=== PATIENT | male | born 2000 | race Caucasian/White ===

== ENCOUNTER 2023-07-01 08:44 | Outpatient (AMB) | payer MEDICARE, MEDICAID, SELFPAY ==
--- NOTE | 2023-07-01 09:04 | MHC.PC.OV ---
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 Required: No Allergies No Known Allergies Allergy (Verified 07/01/23 09:05) Medication List - Last Reconciled 07/01/23 by Cate Delgado MD atorvastatin 10 mg PO DAILY levothyroxine 125 mcg PO DAILY Tobacco use date assessed: 07/01/23 Dental Screening Dental Screen Date: 07/01/23 Did you have a dental visit in the last 12 months?: Yes Did you have a dental problem in the last 6 months where you did not have access to dental care?: No Was dental information given to patient?: Patient has dentist HPI HPI Comments History of Present Illness Details The patient is a 22 year old male with a past medical history of autism spectrum presenting to [facility]. Transferring from pediatrics Dr Joseph CV: On atorvastatin 10mg daily. Has started on a better diet. Lost weight. And thyroid has bee treated. Endocrine: Previously seeing pediatric endocrinology. On levothyroxine 125mcg daily. Neuropsych: Previously on anxiety & ADHD medications. Previously seeing a therapist and medication provider. Born at 29 weeks. Has central processing disorder. Some learning delay, social communication disorders. MSK: Mountain biking. Working at [employer]. Seeing arthritis treatment center. Notes frequently injuring himself over the past year. Increased accidents mountain biking. Stubbing toe, walking into [place] at home. Endorses intermittent vertigo, tinnitus (b/l), 2 frontal b/l FERRARA days per week (increased over past years). Dentist [facility] Medical History (Updated 07/01/23 @ 13:57 by Elayne Justin CMA) Thyroid disease High cholesterol Family History (Updated 07/01/23 @ 13:56 by Elayne Justin CMA) Mother Asthma HTN (hypertension) Mother HTN (hypertension) Maternal Grandfather HTN (hypertension) Diabetes Lung cancer Father Cardiovascular disease Thyroid disease Alcoholism Paternal Grandmother Alcoholism Bone cancer Other FH: mental illness Substance abuse Social History (Updated 07/01/23 @ 13:57 by Elayne Justin CMA) Housing: House Patient Tobacco Use Status: Never used Tobacco e-Cigarette/Vaping Use: Never Used Second Hand Smoke Exposure: Yes service: No Current occupational status: employed 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 1. Little interest or pleasure in doing things: several days 2. Feeling down, depressed, or hopeless: not at all 3. Trouble falling or staying asleep, or sleeping too much: nearly every day 4. Feeling tired or having little energy: several days 5. Poor appetite or overeating: not at all 6. Feeling bad about yourself - or that you are a failure or have let yourself or your family down: not at all 7. Trouble concentrating on things, such as reading the newspaper or watching television: more than half the days 8. Moving or speaking so slowly that other people could have noticed. Or the opposite - being so fidgety or restless that you have been moving around a lot more than usual: several days 9. Thoughts that you would be better off or of hurting yourself in some way: not at all Total score: 8 Depression Screening Interpretation: Positive Depression Screening Done: Yes 84370 - PHQ-9 Billing: Yes Source: Developed by Drs. Kirk Love, Viri León, Cam Byrd and colleagues, with an educational jay from [employer]. Thrive Questionnaire Date Thrive assessed: 07/01/23 I am a: Patient What is your living situation today?: I have a steady place to live Within the past 12 months, did the food you bought not last and you didn't have the money to get more?: Never true Within the past 12 months, did you worry whether your food would run out before you got money to buy more?: Never true Do you have trouble paying for medicines?: No Do you have trouble getting transportation to medical appointments?: No Do you have trouble paying your heating and electricity bill?: No Do you have trouble taking care of your child, family member or friend?: No Do you have trouble with day-to-day activities such as bathing, preparing meals, shopping, managing finances, etc.?: No Are you currently unemployed and looking for a job?: No Are you interested in more education?: No Please select the resources that you would like help with: None Currently or been in a relationship where the following occur: no concerns reported THRIVE Score: 0 AUDIT C Alcohol Use Questionnaire (AUDIT-C) 1. How often do you have a drink containing alcohol?: Never 3. How often do you have six or more drinks on one occasion?: Never Total Score: 0 GENE-7 AMB Questionnaire GENE-7 Date GENE - 7 assessed: 07/01/23 Feeling nervous, anxious, or on edge: 0 = Not at all Not being able to stop or control worryin = Not at all Worrying too much about different things: 1 = Several days Trouble relaxin = More than half the days Being so restless that it is hard to sit still: 1 = Several days Feeling afraid as if something awful might happen: 0 = Not at all Source: Developed by Drs. Kirk Love, Viri León, Cam Byrd and colleagues, with an educational jay from [employer]. GENE-7 Assessment Billing GENE-7 Assessment Tool: GENE-7 Assessment 21369 Review of Systems Const Details: see HPI Physical exam (Primary Care) Vital Signs: Last Vital Signs Temp 97.7 F 07/01/23 09:09 Pulse 70 07/01/23 09:09 Resp 16 07/01/23 09:09 BP 108/80 07/01/23 09:09 Pulse Ox 99 07/01/23 09:09 Oxygen Delivery Method Room Air 07/01/23 09:09 PHYSICAL EXAM: GENERAL: Alert and oriented x 3. NAD EYES: EOMI. Anicteric. HENT: Moist mucous membranes. No scleral icterus. b/l thyroid nodule, no enlargement LUNGS: Clear to auscultation bilaterally. CARDIOVASCULAR: Regular rate and rhythm. No murmur. ABDOMEN: Soft, non-tender +bs EXTREMITIES: No edema. Non-tender. SKIN: No rashes or lesions. Warm. NEUROLOGIC: Eyes closed single balance abnormal b/l, R worse than left. normal tandem walk. PSYCHIATRIC: Cooperative. Appropriate mood and affect BMI result Body Mass Index 25.6 Tobacco/Smoking Status: Tobacco use Status Tobacco use date assessed 07/01/23 07/01/23 09:14 Patient Tobacco Use Status Never used Tobacco 07/01/23 09:14 e-Cigarette/Vaping Use Never Used 07/01/23 09:14 Depression Screening Interpretation: Positive Currently or been in a relationship where the following occur: no concerns reported Assessment and Plan Assessment & Plan (1) Hyperlipidemia: Comment: Check lipids. May try off medication depending on readings Code(s): E78.5 - Hyperlipidemia, unspecified Qualifiers: Hyperlipidemia type: mixed hyperlipidemia Qualified Code(s): E78.2 - Mixed hyperlipidemia (2) Hypothyroid: Comment: monitor tsh. consider thyroid u/s Code(s): E03.9 - Hypothyroidism, unspecified Qualifiers: Hypothyroidism type: unspecified Qualified Code(s): E03.9 - Hypothyroidism, unspecified (3) ADHD: Code(s): F90.9 - Attention-deficit hyperactivity disorder, unspecified type Qualifiers: Attention deficit-hyperactivity disorder type: predominantly inattentive Qualified Code(s): F90.0 - Attention-deficit hyperactivity disorder, predominantly inattentive type (4) Anxiety: Code(s): F41.9 - Anxiety disorder, unspecified (5) Headache: Code(s): R51.9 - Headache, unspecified Qualifiers: Headache type: other headache syndrome Qualified Code(s): G44.89 - Other headache syndrome (6) Vertigo: Comment: referral to neuro given constellation of symptoms. MRI ordered r/o lesion Code(s): R42 - Dizziness and giddiness (7) Frequent falls: Comment: see above Code(s): R29.6 - Repeated falls (8) Polyarthralgia: Comment: Labs ordered Code(s): M25.50 - Pain in unspecified joint (9) Polymyalgia: Code(s): M35.3 - Polymyalgia rheumatica (10) Right hip pain: Code(s): M25.551 - Pain in right hip Plan: xray ordered (11) Polyarthralgia: Comment: Labs ordered Code(s): M25.50 - Pain in unspecified joint (12) Polymyalgia: Code(s): M35.3 - Polymyalgia rheumatica (13) Sleep disorder: Comment: sleep study to r/o abnormal sleep behavoir/narcolepsy etc Code(s): G47.9 - Sleep disorder, unspecified (14) Headache: Code(s): R51.9 - Headache, unspecified (15) Vertigo: Comment: referral to neuro given constellation of symptoms. MRI ordered r/o lesion Code(s): R42 - Dizziness and giddiness (16) Frequent falls: Comment: see above Code(s): R29.6 - Repeated falls Orders: Orders Complete Blood Count Auto Diff Today E03.9 - Hypothyroidism, unspecified, E78.2 - Mixed hyperlipidemia, F41.9 - Anxiety disorder, unspecified, F90.9 - Attention-deficit hyperactivity disorder, unspecified type, M25.50 - Pain in unspecified joint, M35.3 - Polymyalgia rheumatica, R29.6 - Repeated falls, R42 - Dizziness and giddiness, R51.9 - Headache, unspecified Comprehensive Met. Panel Today E03.9 - Hypothyroidism, unspecified, E78.2 - Mixed hyperlipidemia, F41.9 - Anxiety disorder, unspecified, F90.9 - Attention-deficit hyperactivity disorder, unspecified type, M25.50 - Pain in unspecified joint, M35.3 - Polymyalgia rheumatica, R29.6 - Repeated falls, R42 - Dizziness and giddiness, R51.9 - Headache, unspecified Lipid Panel Today E03.9 - Hypothyroidism, unspecified, E78.2 - Mixed hyperlipidemia, F41.9 - Anxiety disorder, unspecified, F90.9 - Attention-deficit hyperactivity disorder, unspecified type, M25.50 - Pain in unspecified joint, M35.3 - Polymyalgia rheumatica, R29.6 - Repeated falls, R42 - Dizziness and giddiness, R51.9 - Headache, unspecified TSH reflex Free T4 Today E03.9 - Hypothyroidism, unspecified, E78.2 - Mixed hyperlipidemia, F41.9 - Anxiety disorder, unspecified, F90.9 - Attention-deficit hyperactivity disorder, unspecified type, M25.50 - Pain in unspecified joint, M35.3 - Polymyalgia rheumatica, R29.6 - Repeated falls, R42 - Dizziness and giddiness, R51.9 - Headache, unspecified Vitamin B12 Today E03.9 - Hypothyroidism, unspecified, E78.2 - Mixed hyperlipidemia, F41.9 - Anxiety disorder, unspecified, F90.9 - Attention-deficit hyperactivity disorder, unspecified type, M25.50 - Pain in unspecified joint, M35.3 - Polymyalgia rheumatica, R29.6 - Repeated falls, R42 - Dizziness and giddiness, R51.9 - Headache, unspecified Rheumatoid Factor Today M25.50 - Pain in unspecified joint, M35.3 - Polymyalgia rheumatica RT PSG in-lab sleep study Today G47.9 - Sleep disorder, unspecified MR head/brain wo/w con Today R29.6 - Repeated falls, R42 - Dizziness and giddiness, R51.9 - Headache, unspecified Lyme IgG/IgM w/reflex to WB Today E03.9 - Hypothyroidism, unspecified, E78.2 - Mixed hyperlipidemia, F41.9 - Anxiety disorder, unspecified, F90.9 - Attention-deficit hyperactivity disorder, unspecified type, M25.50 - Pain in unspecified joint, M35.3 - Polymyalgia rheumatica, R29.6 - Repeated falls, R42 - Dizziness and giddiness, R51.9 - Headache, unspecified XR hip RT min 2V Today M25.50 - Pain in unspecified joint, M25.551 - Pain in right hip, M35.3 - Polymyalgia rheumatica JAYMIE Reflex Titer and Pattern Today M25.50 - Pain in unspecified joint, M35.3 - Polymyalgia rheumatica Referrals Neurology Referral R29.6 - Repeated falls, R42 - Dizziness and giddiness, R51.9 - Headache, unspecified Medications: New atorvastatin 10 mg PO DAILY 90 days 90 tabs 3RF levothyroxine 125 mcg PO DAILY 90 days 90 tabs 3RF Coding Level of Care Code Tele New Pt Level 5 (25330) Complex EM visit Add On G2211 Diagnoses Mixed hyperlipidemia E78.2 Hyperlipidemia type: mixed hyperlipidemia Hypothyroidism, unspecified type E03.9 Hypothyroidism type: unspecified Attention deficit hyperactivity disorder (ADHD), predominantly inattentive type F90.0 Attention deficit-hyperactivity disorder type: predominantly inattentive Anxiety F41.9 Other headache syndrome G44.89 Headache type: other headache syndrome Vertigo R42 Frequent falls R29.6 Polyarthralgia M25.50 Polymyalgia M35.3 Right hip pain M25.551 Sleep disorder G47.9 Additional Codes GENE-7 Assessment Billing - GENE-7 Assessment Tool: GENE-7 Assessment 12799 ([id number]) Time Spent (min) 75
[2023-07-01 09:09] VITALS: BP 108/80; PULSE 70; RESP 16; TEMP 36.5; O2SAT 99; BMI 25.6
== END 2023-07-01 10:15 | disposition home or self-care (01) ==
PROVIDERS: PCP Internal Medicine; Visit Provider Family Medicine
DX: E78.2 Mixed hyperlipidemia (principal); M35.3 Polymyalgia rheumatica; F90.0 Attention-deficit hyperactivity disorder, predominantly inattentive type; F41.9 Anxiety disorder, unspecified; E03.9 Hypothyroidism, unspecified; G44.89 Other headache syndrome; R42 Dizziness and giddiness; R29.6 Repeated falls; M25.50 Pain in unspecified joint; M25.551 Pain in right hip; G47.9 Sleep disorder, unspecified; R51.9 Headache, unspecified
CPT/HCPCS: 99205; G2212

== ENCOUNTER → 2023-07-14 19:30 | Outpatient (REF) | payer MEDICARE, MEDICAID, SELFPAY | LOC: HO.SL 19:30 | PROVIDERS: PCP Internal Medicine; Visit Provider Internal Medicine | DX: G47.9 Sleep disorder, unspecified (principal) | CPT/HCPCS: 95810 ==

== ENCOUNTER → 2023-07-14 20:54 | Outpatient (BNV) | payer MEDICARE, MEDICAID, SELFPAY | PROVIDERS: PCP Internal Medicine; Visit Provider Psychiatry & Neurology Neurology | DX: G47.9 Sleep disorder, unspecified (principal) | CPT/HCPCS: 95810 ==

== ENCOUNTER 2023-10-14 15:27 | Outpatient (REF) | payer MEDICARE, MEDICAID, SELFPAY ==
--- NOTE | ~2023-10-14 | MR_ITS ---
EXAMINATION: MR BRAIN WITH AND WITHOUT CONTRAST CLINICAL INFORMATION: Repeated falls, vertigo, headache COMPARISON: None. TECHNIQUE: MRI of the brain was obtained using routine sequences before and following administration of intravenous contrast. A total of 8 mL of Gadavist was administered intravenously. FINDINGS: No acute infarct. The GRE sequence is without susceptibility artifact to suggest acute or chronic blood products. No extra-axial fluid collection. The ventricles and sulci are normal in size and configuration without significant volume loss or hydrocephalus. There are a few scattered small T2 FLAIR hyperintense foci (less than 5) in the subcortical/deep white matter which are entirely nonspecific. No abnormal intraparenchymal or leptomeningeal enhancement. No significant mass effect or herniation pattern. The intracranial dural venous sinus and arterial flow voids are preserved. Normal appearance of the midline structures. The orbits are grossly unremarkable. Retention cysts along the floor of the right sphenoid and maxillary sinuses. Mild patchy ethmoid air cell mucosal disease. Leftward nasal septal deviation with bony spur impinging upon the left inferior nasal turbinate. No mastoid effusion. Normal marrow signal. MR/MR head/brain wo/w con IMPRESSION: Few scattered small lesions (less than 5) in the subcortical/deep white matter which are entirely nonspecific. No acute intracranial abnormality nor pathologic intracranial enhancement. Leftward nasal septal deviation with bony spur impinging upon the left inferior nasal turbinate. Electronically signed by: Jen Wilburn MD 11/02/2023 06:42 PM EDT
[2023-10-14] MEDS: gadobutroL 10 ML VIAL IVPUSH (16:18)
== END 2023-10-14 15:28 | disposition home or self-care (01) ==
LOC: HO.MRI 15:27
PROVIDERS: PCP Internal Medicine; Visit Provider Internal Medicine
DX: R29.6 Repeated falls (principal); R42 Dizziness and giddiness; R51.9 Headache, unspecified
CPT/HCPCS: 70553; A9585

== ENCOUNTER 2023-11-11 09:12 | Outpatient (AMB) | payer MEDICARE, MEDICAID, SELFPAY ==
--- NOTE | 2023-11-11 09:18 | A.OFFPC_ITS ---
Vital Signs 11/11/23 09:25 Height 5 ft 11 in Weight 187 lb BMI 26.1 BP 131/77 Blood Pressure Location Lt brachial Position Sitting Respiration 13 Pulse 77 Pulse Source Pulse Oximeter Temp 98.1 F Temp Source Temporal Artery Scan Pulse Oximetry (%) 98 Oxygen Delivery Method Room Air Intake Visit Reasons: PE Intake Note: Patient is here with his mother and reports he would like to go over his sleep study and mri. Patient reports he has not been taking his medication as of recent due to wanting to get labs drawn to see if he still needs his medications. Quality Measurement Specialist Required: No Accompanied by: Mother Allergies No Known Allergies Allergy (Verified 11/11/23 09:29) Tobacco use date assessed: 07/01/23 Dental Screening Dental Screen Date: 07/01/23 HPI HPI Comments History of Present Illness Details The patient is a 23 year old male with a past medical history of autism spectrum presenting for annual exam CV: On break from atorvastatin 10mg daily so can see what lipids are off the medication. Has started on a better diet. Lost weight. Has been off levothyroxine for the past 1-2 weeks. Endocrine: Previously seeing pediatric endocrinology. On levothyroxine 125mcg daily. Neuropsych: Previously on anxiety & ADHD medications. Previously seeing a therapist and medication provider. Born at 29 weeks. Has central processing disorder. Some learning delay, social communication disorders. MSK: Mountain biking. Working at [employer]. Seeing arthritis treatment center. Experiencing a lot of joint pain but biking 60 hours a week and doing cardio Notes frequently injuring himself over the past year. Increased accidents mountain biking. Stubbing toe, walking into [place] at home. Endorses intermittent vertigo, tinnitus (b/l), 2 frontal b/l FERRAAR days per week (increased over past years). MRI of the brain was reassuring. No sleep apnea on study. Frequent limb movements with poor sleep efficiency. 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 HEENT: Denies changes in vision and hearing. RESPIRATORY: Denies SOB and cough. CV: Denies palpitations and CP GI: Denies abdominal pain, nausea, vomiting and diarrhea. : Denies dysuria and urinary frequency. MSK: Denies new myalgia and joint pain. SKIN: Denies rash and pruritus. NEUROLOGICAL: Denies headache PSYCHIATRIC: Denies recent changes in mood. PHYSICAL EXAM: GENERAL: Alert and oriented x 3. NAD EYES: EOMI. Anicteric. HENT: Moist mucous membranes. No scleral icterus. No cervical lymphadenopathy. LUNGS: Clear to auscultation bilaterally. CARDIOVASCULAR: Regular rate and rhythm. No murmur. No JVD. ABDOMEN: Soft, non-tender +bs : Normal penis, no testicular masses EXTREMITIES: No edema. Non-tender. SKIN: No rashes or lesions. Warm. NEUROLOGIC: No focal neurological deficits. CN II-XII grossly intact PSYCHIATRIC: Cooperative. Appropriate mood and affect [facility] Medical History (Updated 11/11/23 @ 10:05 by Cate Delgado MD) Thyroid disease High cholesterol Family History (Updated 07/01/23 @ 13:56 by Elayne Justin CMA) Mother Asthma HTN (hypertension) Mother HTN (hypertension) Maternal Grandfather HTN (hypertension) Diabetes Lung cancer Father Cardiovascular disease Thyroid disease Alcoholism Paternal Grandmother Alcoholism Bone cancer Other FH: mental illness Substance abuse Social History (Updated 07/01/23 @ 13:57 by Elayne Justin CMA) Housing: House Patient Tobacco Use Status: Never used Tobacco e-Cigarette/Vaping Use: Never Used Second Hand Smoke Exposure: Yes service: No Current occupational status: employed 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 1. Little interest or pleasure in doing things: not at all 2. Feeling down, depressed, or hopeless: not at all 3. Trouble falling or staying asleep, or sleeping too much: several days 4. Feeling tired or having little energy: several days 5. Poor appetite or overeating: not at all 6. Feeling bad about yourself - or that you are a failure or have let yourself or your family down: not at all 7. Trouble concentrating on things, such as reading the newspaper or watching television: not at all 8. Moving or speaking so slowly that other people could have noticed. Or the opposite - being so fidgety or restless that you have been moving around a lot more than usual: not at all 9. Thoughts that you would be better off or of hurting yourself in some way: not at all Total score: 2 Depression Screening Interpretation: Negative Depression Screening Done: Yes 65971 - PHQ-9 Billing: Yes Source: Developed by Drs. Kirk oLve, Viri León, Cam Byrd and colleagues, with an educational jay from [employer]. Thrive Questionnaire Date Thrive assessed: 11/11/23 I am a: Patient What is your living situation today?: I have a steady place to live Within the past 12 months, did the food you bought not last and you didn't have the money to get more?: Never true Within the past 12 months, did you worry whether your food would run out before you got money to buy more?: Sometimes True Do you have trouble paying for medicines?: No Do you have trouble getting transportation to medical appointments?: No Do you have trouble paying your heating and electricity bill?: No Do you have trouble taking care of your child, family member or friend?: No Do you have trouble with day-to-day activities such as bathing, preparing meals, shopping, managing finances, etc.?: No Are you currently unemployed and looking for a job?: No Are you interested in more education?: No Please select the resources that you would like help with: Food Currently or been in a relationship where the following occur: No concerns reported THRIVE Score: 1 AUDIT C Alcohol Use Questionnaire (AUDIT-C) 1. How often do you have a drink containing alcohol?: Never 3. How often do you have six or more drinks on one occasion?: Never Total Score: 0 GENE-7 AMB Questionnaire GENE-7 Date GENE - 7 assessed: 11/11/23 Feeling nervous, anxious, or on edge: 1 = Several days Not being able to stop or control worryin = Several days Worrying too much about different things: 1 = Several days Trouble relaxin = Several days Being so restless that it is hard to sit still: 0 = Not at all Becoming easily annoyed or irritable: 1 = Several days Feeling afraid as if something awful might happen: 1 = Several days Total GENE-7 score (0-4 normal; 5-9 mild; 10-14 moderate; 15-21 severe): 6 Source: Developed by Viri MerrittW. Mau, Cam Byrd and colleagues, with an educational jay from [employer]. GENE-7 Assessment Billing GENE-7 Assessment Tool: GENE-7 Assessment 01751 Physical exam (Primary Care) Vital Signs: Last Vital Signs Temp 98.1 F 11/11/23 09:25 Pulse 77 11/11/23 09:25 Resp 13 11/11/23 09:25 BP 131/77 11/11/23 09:25 Pulse Ox 98 11/11/23 09:25 Oxygen Delivery Method Room Air 11/11/23 09:25 BMI result Body Mass Index 26.1 Tobacco/Smoking Status: Tobacco use Status Tobacco use date assessed 07/01/23 11/11/23 09:19 Patient Tobacco Use Status Never used Tobacco 11/11/23 09:19 e-Cigarette/Vaping Use Never Used 11/11/23 09:19 PHQ-9: PHQ-9 Score PHQ-9: Total score 2 11/11/23 09:41 Depression Screening Interpretation: Negative Thrive Assessment: Date of Thrive Assessment Date Thrive assessed 11/11/23 11/11/23 09:34 Currently or been in a relationship where the following occur: No concerns reported Assessment and Plan Assessment & Plan (1) Physical exam: Code(s): Z00.00 - Encounter for general adult medical examination without abnormal findings Plan: Preventive measures discussed Tdap today (2) Polyarthralgia: Comment: Labs ordered Code(s): M25.50 - Pain in unspecified joint (3) Hypothyroid: Comment: monitor tsh. Code(s): E03.9 - Hypothyroidism, unspecified Qualifiers: Hypothyroidism type: unspecified Qualified Code(s): E03.9 - Hyp othyroidism, unspecified Orders: Orders Magnesium Today M25.50 - Pain in unspecified joint, M35.3 - Polymyalgia rheumatica IRON PROFILE Today M25.50 - Pain in unspecified joint, M35.3 - Polymyalgia rheumatica Coding Level of Care Code Est Pt Prev Care [id number]) Diagnoses Physical exam Z00.00 Polyarthralgia M25.50 Hypothyroidism, unspecified type E03.9 Hypothyroidism type: unspecified Additional Codes GENE-7 Assessment Billing - GENE-7 Assessment Tool: GENE-7 Assessment 21050 ([id number])
[2023-11-11 09:25] VITALS: BP 131/77; PULSE 77; RESP 13; TEMP 36.7; O2SAT 98; BMI 26.1
== END 2023-11-11 10:23 | disposition home or self-care (01) ==
PROVIDERS: PCP Internal Medicine; Visit Provider Internal Medicine
DX: Z00.00 Encounter for general adult medical examination without abnormal findings (principal); M25.50 Pain in unspecified joint; E03.9 Hypothyroidism, unspecified

== ENCOUNTER → 2023-11-11 09:12 | Outpatient (BNVA) | payer MEDICARE, MEDICAID, SELFPAY | PROVIDERS: PCP Internal Medicine; Visit Provider Internal Medicine ==

== ENCOUNTER 2023-11-11 10:10 | Outpatient (REF) | payer MEDICARE, MEDICAID, SELFPAY ==
[2023-11-11 11:36] LABS: MANUAL DIFF FLAG NO
[2023-11-11 11:57] LABS: Basophils Percent Auto 0.5 % (0-2); Eosinophils Absolute Auto 0.2 X10*3/uL (0.0-0.4); Eosinophils Percent Auto 4.3 % (0-4); Hematocrit 50.6 % (42.0-52.0); Hemoglobin 16.9 g/dl (14.0-18.0); Imm Gran Abs Auto 0.01 X10*3/uL (0.00-0.03); Imm Gran Pct Auto 0.2 % (0.0-0.4); Lymphocytes Absolute Auto 2.3 X10*3/uL (1.2-4.9); Lymphocytes Percent Auto 41.2 % (20-40); Mean Corpuscular HGB Conc 33.4 g/dl (31.0-36.0); Mean Corpuscular Hemoglobin 27.6 pg (27.0-33.0); Mean Corpuscular Volume 82.7 fL (80.0-98.0); Mean Platelet Volume 10.6 fL (9.4-12.4); Monocytes Absolute Auto 0.4 X10*3/uL (0.1-1.2); Monocytes Percent Auto 7.9 % (2-11); Neutrophils Absolute Auto 2.5 x10*3/uL (2.0-8.3); Neutrophils Percent Auto 45.9 % (45-73); Platelet Count 164 X10*3/uL (160-400); Red Blood Count 6.12 X10*6/uL (4.60-5.80); Red Cell Distribution Width 12.6 % (11.0-16.0); White Blood Count 5.5 X10*3/uL (4.8-10.8)
[2023-11-11 12:28] LABS: Rheumatoid Factor < 13.0 IU/mL (<15.0)
[2023-11-11 12:53] LABS: Vitamin B12 818 pg/mL (200-900)
[2023-11-11 12:57] LABS: Alanine Aminotransferase 44 U/L (0-40); Albumin Level 4.5 g/dL (3.5-5.0); Alkaline Phosphatase 78 U/L (39-117); Anion Gap 12 (12-20); Aspartate Amino Transferase 34 U/L (5-37); Bilirubin Total 0.5 mg/dL (0.0-1.0); Blood Urea Nitrogen 27 mg/dL (9-16); Calcium 10.2 mg/dL (8.4-10.2); Carbon Dioxide 31 mmol/L (22-29); Chloride 102 mmol/L (96-108); Cholesterol 256 mg/dL (<200); Estimated Glomerular Filt Rate > 60; HDL Cholesterol 51 mg/dL (>40); Iron 129 mcg/dL (45-160); LDL Cholesterol Calculated 178 mg/dL (<100); Magnesium 1.9 mg/dL (1.6-2.6); Percent Iron Saturation 42 % (15-50); Potassium 4.4 mmol/L (3.3-5.1); Sodium 141 mmol/L (135-145); TSH reflex Free T4 5.68 uIU/mL (0.32-4.0); Total Iron Binding Capacity 304 mcg/dL (228-428); Total Protein 7.4 g/dL (6.5-8.0); Triglycerides 138 mg/dL (<150); Unsaturated Iron Binding 175 ug/dL
[2023-11-11 13:51] LABS: Glucose Random 59 mg/dL (60-115)
[2023-11-11 14:48] LABS: Free T4 (Free Thyroxine) 0.83 ng/dL (0.71-1.85)
[2023-11-12 18:08] LABS: Lyme Abs Screen <0.90 index
[2023-11-13 12:23] LABS: Anti Nuclear Antibody Screen NEGATIVE (NEGATIVE)
== END 2023-11-11 10:11 | disposition home or self-care (01) ==
LOC: HO.WFDLDS 10:10
PROVIDERS: Visit Provider Internal Medicine
DX: Z00.00 Encounter for general adult medical examination without abnormal findings (principal); F90.9 Attention-deficit hyperactivity disorder, unspecified type; E03.9 Hypothyroidism, unspecified; E78.2 Mixed hyperlipidemia; F41.9 Anxiety disorder, unspecified; R51.9 Headache, unspecified; R42 Dizziness and giddiness; R29.6 Repeated falls; M25.50 Pain in unspecified joint; M35.3 Polymyalgia rheumatica; F84.0 Autistic disorder
CPT/HCPCS: 36415; 80053; 80061; 82607; 83540; 83735; 84439; 84443; 85025; 86038; 86431; 86617; 86618; 96127; 99395

== ENCOUNTER 2023-11-25 14:50 | Outpatient (AMB) | payer MEDICARE, MEDICAID, SELFPAY ==
--- NOTE | 2023-11-25 15:03 | A.OFFPC_ITS ---
Vital Signs 11/25/23 15:04 Height 5 ft 11 in Weight 184 lb 2 oz BMI 25.7 BP 120/64 Blood Pressure Location Rt brachial Position Sitting Pulse 68 Pulse Source Pulse Oximeter Oxygen Delivery Method Room Air Intake Visit Reasons: fu blood work Intake Note: Follow up lab results. Processing Mgr Required: No Allergies No Known Allergies Allergy (Verified 11/25/23 15:03) Tobacco use date assessed: 07/01/23 Dental Screening Dental Screen Date: 07/01/23 HPI HPI Comments History of Present Illness Details The patient is a 23 year old male with a past medical history of autism spectrum presenting for follow up CV: On break from atorvastatin 10mg daily so can see what lipids are off the medication. Has started on a better diet. Lost weight. Has been off for ~2 weeks his LDL is 178. Endocrine: Previously seeing pediatric endocrinology. On levothyroxine 125mcg daily but stopped 2 weeks ago wants to see if still necessary. TSH 5.68 with free T4 0.83 Neuropsych: Previously on anxiety & ADHD medications. Previously seeing a therapist and medication provider. Born at 29 weeks. Has central processing disorder. Some learning delay, social communication disorders. MSK: Mountain biking. Working at [employer]. Seeing arthritis treatment center. Experiencing a lot of joint pain but biking 60 hours a week and doing cardio Notes frequently injuring himself over the past year. Increased accidents mountain biking. Stubbing toe, walking into [place] at home. Endorses intermittent vertigo, tinnitus (b/l), 2 frontal b/l FERRARA days per week (increased over past years). MRI of the brain was reassuring. No sleep apnea on study. Frequent limb movements with poor sleep efficiency. Reports chronic severe pain in the groin. Originates in the mid pubic area and seems to shoot through the shaft. This has been ongoing. It lasts for a few seconds or a few minutes. No visible hernias on exam. No penile discharge, denies dysuria Dentist UTD ROS see HPI PHYSICAL EXAM: GENERAL: Alert and oriented x 3. NAD EYES: EOMI. Anicteric. HENT: Moist mucous membranes. No scleral icterus. No cervical lymphadenopathy. SKIN: No rashes or lesions. PSYCHIATRIC: Cooperative. Appropriate mood and affect [facility] Medical History (Updated 11/26/23 @ 10:33 by Cate Delgado MD) Thyroid disease High cholesterol Family History (Updated 07/01/23 @ 13:56 by Elayne Justin CMA) Mother Asthma HTN (hypertension) Mother HTN (hypertension) Maternal Grandfather HTN (hypertension) Diabetes Lung cancer Father Cardiovascular disease Thyroid disease Alcoholism Paternal Grandmother Alcoholism Bone cancer Other FH: mental illness Substance abuse Social History (Updated 07/01/23 @ 13:57 by Elayne Justin CMA) Housing: House Patient Tobacco Use Status: Never used Tobacco e-Cigarette/Vaping Use: Never Used Second Hand Smoke Exposure: Yes service: No Current occupational status: employed 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 3. Trouble falling or staying asleep, or sleeping too much: several days Source: Developed by Drs. Kirk Love, Cam Elizabeth and colleagues, with an educational jay from [employer]. Thrive Questionnaire Date Thrive assessed: 11/09/23 I am a: Patient What is your living situation today?: I have a steady place to live Within the past 12 months, did the food you bought not last and you didn't have the money to get more?: Never true Within the past 12 months, did you worry whether your food would run out before you got money to buy more?: Sometimes True Do you have trouble paying for medicines?: No Do you have trouble getting transportation to medical appointments?: No Do you have trouble paying your heating and electricity bill?: No Do you have trouble taking care of your child, family member or friend?: No Do you have trouble with day-to-day activities such as bathing, preparing meals, shopping, managing finances, etc.?: No Are you currently unemployed and looking for a job?: No Are you interested in more education?: No Please select the resources that you would like help with: Food Currently or been in a relationship where the following occur: No concerns reported THRIVE Score: 1 GENE-7 AMB Questionnaire GENE-7 Date GENE - 7 assessed: 11/11/23 Source: Developed by Drs. Kirk Love, Cam Elizabeth and colleagues, with an educational jay from [employer]. Physical exam (Primary Care) Vital Signs: Last Vital Signs Pulse 68 11/25/23 15:04 BP 120/64 11/25/23 15:04 Oxygen Delivery Method Room Air 11/25/23 15:04 BMI result Body Mass Index 25.7 Tobacco/Smoking Status: Tobacco use Status Tobacco use date assessed 07/01/23 11/25/23 15:07 Patient Tobacco Use Status Never used Tobacco 11/25/23 15:07 e-Cigarette/Vaping Use Never Used 11/25/23 15:07 Thrive Assessment: Date of Thrive Assessment Date Thrive assessed 11/09/23 11/25/23 15:07 Currently or been in a relationship where the following occur: No concerns reported Coding Level of Care Code Est Pt Level 4 (60059) Complex EM visit Add On G2211 Diagnoses Penile pain N48.89 Hypothyroidism, unspecified type E03.9 Hypothyroidism type: unspecified Mixed hyperlipidemia E78.2 Hyperlipidemia type: mixed hyperlipidemia Assessment & Plan Assessment & Plan (1) Penile pain: Code(s): N48.89 - Other specified disorders of penis Category: Medical Plan: u/s and referral to urology This is not acute (2) Hypothyroid: Code(s): E03.9 - Hypothyroidism, unspecified Category: Medical Qualifiers: Hypothyroidism type: unspecified Qualified Code(s): E03.9 - Hypothyroidism, unspecified Plan: Check TSH in six weeks with visit. currently holding medications (3) Hyperlipidemia: Code(s): E78.5 - Hyperlipidemia, unspecified Category: Medical Qualifiers: Hyperlipidemia type: mixed hyperlipidemia Qualified Code(s): E78.2 - Mixed hyperlipidemia Plan: check lipids in six weeks. currently holding meds Orders: Orders Lipid Panel 5 Weeks E03.9 - Hypothyroidism, unspecified, E78.2 - Mixed hyperlipidemia TSH reflex Free T4 5 Weeks E03.9 - Hypothyroidism, unspecified, E78.2 - Mixed hyperlipidemia Thyroid Peroxidase Antibodies 5 Weeks E03.9 - Hypothyroidism, unspecified, E78.2 - Mixed hyperlipidemia UA CC w/rflx Micro + Cult 11/25/23 R10.2 - Pelvic and perineal pain US scrotum doppler 11/25/23 N48.89 - Other specified disorders of penis Referrals Urology Referral N48.89 - Other specified disorders of penis, R10.2 - Pelvic and perineal pain
[2023-11-25 15:04] VITALS: BP 120/64; PULSE 68; BMI 25.7
== END 2023-11-25 15:46 | disposition home or self-care (01) ==
PROVIDERS: PCP Internal Medicine; Visit Provider Internal Medicine
DX: N48.89 Other specified disorders of penis (principal); E03.9 Hypothyroidism, unspecified; E78.2 Mixed hyperlipidemia

== ENCOUNTER → 2023-11-25 14:50 | Outpatient (BNVA) | payer MEDICARE, MEDICAID, SELFPAY | PROVIDERS: PCP Internal Medicine; Visit Provider Internal Medicine | DX: N48.89 Other specified disorders of penis (principal); E03.9 Hypothyroidism, unspecified; E78.2 Mixed hyperlipidemia; R10.2 Pelvic and perineal pain; F84.0 Autistic disorder | CPT/HCPCS: 99212 ==

== ENCOUNTER 2023-12-29 15:16 | Outpatient (REF) | payer MEDICARE, MEDICAID, SELFPAY ==
[2023-12-29 17:01] LABS: Cholesterol 264 mg/dL (<200); HDL Cholesterol 54 mg/dL (>40); LDL Cholesterol Calculated 189 mg/dL (<100); Triglycerides 105 mg/dL (<150)
[2023-12-29 17:19] LABS: TSH reflex Free T4 2.83 uIU/mL (0.32-4.0)
[2023-12-31 20:08] LABS: Thyroid Peroxidase Antibodies 122 IU/mL (<9)
== END 2023-12-29 15:17 | disposition home or self-care (01) ==
LOC: HO.HMGCLDS 15:16
PROVIDERS: PCP Internal Medicine; Visit Provider Internal Medicine
DX: E03.9 Hypothyroidism, unspecified (principal); E78.2 Mixed hyperlipidemia
CPT/HCPCS: 36415; 80061; 84443; 86376

== ENCOUNTER 2024-01-20 10:07 | Outpatient (REF) | payer MEDICARE, MEDICAID, SELFPAY ==
--- NOTE | ~2024-01-20 | US_ITS ---
EXAMINATION: US SCROTUM CLINICAL INFORMATION: Pain in the pelvis.. COMPARISON: None available. TECHNIQUE: A sonogram of the scrotum was performed assessing alegria-scale appearance and color Doppler flow. Spectral Doppler analysis of the arterial and venous flow were performed in the testes bilaterally. FINDINGS: RIGHT: Right testicle measures 5.1 x 2.2 x 2.7 cm, volume 15.9 mL. No focal testicular parenchymal lesions are visualized. Spectral Doppler analysis of the arterial and venous flow is normal in the right testis. Right epididymal head is normal in size. Small right-sided hydrocele. Incidental appendix involving the epididymal head. Right epididymal Doppler flow is normal. 3 mm scrotal anita on the right. LEFT: Left testicle measures 4.8 x 2.2 x 2.5 cm, volume 13.8 mL. No focal testicular parenchymal lesions are visualized. Spectral Doppler analysis of the arterial and venous flow is normal in the left testis. Left epididymal head is normal in size. No left hydrocele or varicocele is seen. Left epididymal Doppler flow is normal. US/US scrotum IMPRESSION: 1. Normal ultrasound of the testicles. 2. Small right-sided hydrocele. Electronically signed by: Jesse Greenfield MD 01/21/2024 05:28 PM EST
== END 2024-01-20 10:08 | disposition home or self-care (01) ==
LOC: HO.US 10:07
PROVIDERS: PCP Internal Medicine; Visit Provider Internal Medicine
DX: N48.89 Other specified disorders of penis (principal); R10.2 Pelvic and perineal pain
CPT/HCPCS: 76870

== ENCOUNTER 2024-01-26 14:07 | Outpatient (AMB) | payer MEDICARE, MEDICAID, SELFPAY ==
--- NOTE | 2024-01-26 14:10 | A.OFFVIS_ITS ---
Intake Visit Reasons: chronic groin pain/pelvic pain Intake Note: Patient is present for CHRONIC GROIN PAIN/PELVIC PAIN Urology Medication:NONE Antibiotic Allergy:NONE Blood Thinner:NONE Apartment Rental Clerk Required: No Allergies No Known Allergies Allergy (Verified 01/26/24 22:41) Medication List - Last Reconciled 01/26/24 by SANTHOSH Blount atorvastatin 10 mg PO DAILY 90 days levothyroxine 125 mcg PO DAILY 90 days HPI Comments Details: Keith is a pleasant 23-year-old male patient of Dr. Brant Arriaga who was accompanied by his mom at today's office visit. He has a past medical history of thyroid disease, hyperlipidemia, and autism. He presents to the office today as a new patient for ongoing scrotal and perineal pain he has been experiencing. He also reports dysuria at times. He reports the symptoms have been present for many years however feels symptoms fluctuate. He reports having followed up with his new PCP as he has recently transferred from pediatrics to adult medicine at which time recommendations were made for urology referral for further assessment evaluation. In review of patient's chart it appears scrotal ultrasound was ordered and performed. These results were reviewed with the patient and his mom today. Normal ultrasound of the testicles. Small right-sided hydrocele. In assessment of the patient today the penis is circumcised no pain elicited during exam of area. ROSA performed boggy prostate noted we discussed potential symptoms related to prostatitis. We discussed further treatment options as well as risks and benefits of these treatment options. We discussed bladder triggers/irritants. In office urinalysis results reviewed with the patient and his mom today. He reports feeling lower urinary tract symptoms have been present for many years and would like to continue with surveillance monitoring at this time. We discussed referral to pelvic floor therapy. He denies incontinence, nocturia, hematuria, fever, and or chills. He otherwise offers no other issues or concerns at this time. 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 Current occupational exposures/hazards: No Cognitive needs: Yes Hearing needs: No Vision needs: No Review of Systems Const All systems reviewed & are unremarkable except as noted in HPI and below Physical Exam Const General: cooperative, healthy appearing, comfortable, no acute distress, well developed, alert and awake Orientation/consciousness: patient oriented x3 Limitations: other limitations HEENT Head: Yes normal to inspection, Yes normocephalic and Yes atraumatic Ears: hearing grossly normal bilaterally Eyes General: appearance normal, both eyes and all related structures Neck Neck: Yes normal visual inspection and Yes trachea midline Chest Chest palpation & inspection: normal inspection of the chest Resp Effort & Inspection: normal respiratory effort and able to speak in complete sentences Cardio Rate: regular rate GI Inspection: Yes normal to inspection General: Yes no CVA tenderness Back/Spine/Pelvis Back: no CVA tenderness Skin General skin exam: no rashes or lesions noted Neuro General: patient oriented x3 Extrem General: Yes normal to inspection Psych Appearance: grossly normal and well kempt Mental Status: mental status grossly normal Speech and movement: Normal speech and movement present and Clear speech present Affect: normal affect Attitude: cooperative Thought process: Normal thought process present Thought content: Normal thought content present Insight: Fair insight present (Psych) Judgement: Fair judgement present (Psych) Results AMB Urinalysis, Automated UA Leukoctes 0 Luiz/uL Last Edit by ADRIANE Stein on 01/26/24 14:22 UA Nitrite Negative Last Edit by ADRIANE Stein on 01/26/24 14:22 UA Urobilinogen 0.2 mg/dL Last Edit by ADRIANE Stein on 01/26/24 14:2 2 UA Protein 15 mg/dL Last Edit by ADRIANE Stein on 01/26/24 14:22 UA pH 6.0 Last Edit by ADRIANE Stein on 01/26/24 14:22 UA Blood 0 Chas/uL Last Edit by ADRIANE Stein on 01/26/24 14:22 UA Specific [place] 1.025 Last Edit by ADRIANE Stein on 01/26/24 14: 22 UA Ketone Negative Last Edit by ADRIANE Stein on 01/26/24 14:22 UA Bilirubin 0 mg/dL Last Edit by ADRIANE Stein on 01/26/24 14:22 UA Glucose 0 mg/dL Last Edit by ADRIANE Stein on 01/26/24 14:22 Results Reviewed Results Reviewed: Laboratory Last Values Urine pH (Auto) 6.0 01/26/24 14:21 Specific [place] (Auto) 1.025 01/26/24 14:21 Urine Protein (Auto) 15 mg/dL 01/26/24 14:21 Glucose (UA)(Auto) 0 mg/dL 01/26/24 14:21 Urine Ketones (Auto) Negative 01/26/24 14:21 Urine Blood (Auto) 0 Chas/uL 01/26/24 14:21 Urine Nitrite (Auto) Negative 01/26/24 14:21 Urine Bilirubin (Auto) 0 mg/dL 01/26/24 14:21 Urine Urobilinogen (Auto) 0.2 mg/dL 01/26/24 14:21 Leukocyte Esterase (Auto) 0 Luiz/uL 01/26/24 14:21 Date of Service: 01/20/24 EXAMINATION: US SCROTUM FINDINGS: RIGHT: Right testicle measures 5.1 x 2.2 x 2.7 cm, volume 15.9 mL. No focal testicular parenchymal lesions are visualized. Spectral Doppler analysis of the arterial and venous flow is normal in the right testis. Right epididymal head is normal in size. Small right-sided hydrocele. Incidental appendix involving the epididymal head. Right epididymal Doppler flow is normal. 3 mm scrotal anita on the right. LEFT: Left testicle measures 4.8 x 2.2 x 2.5 cm, volume 13.8 mL. No focal testicular parenchymal lesions are visualized. Spectral Doppler analysis of the arterial and venous flow is normal in the left testis. Left epididymal head is normal in size. No left hydrocele or varicocele is seen. Left epididymal Doppler flow is normal. IMPRESSION: 1. Normal ultrasound of the testicles. 2. Small right-sided hydrocele. Assessment & Plan Assessment & Plan (1) Prostatitis: Code(s): N41.9 - Inflammatory disease of prostate, unspecified Category: Medical (2) Dysuria: Code(s): R30.0 - Dysuria Category: Medical (3) Perineal pain: Code(s): R10.2 - Pelvic and perineal pain Category: Medical (4) Hydrocele: Code(s): N43.3 - Hydrocele, unspecified Category: Medical Plan In office urinalysis results reviewed with the patient today and his mother today; as noted above. Recent scrotal ultrasound results reviewed with the patient and his mother today We discussed at length potential causes of symptoms patient is experiencing. ROSA noted boggy prostate we discussed potential lower urinary tract symptoms and symptoms patient was experiencing likely related to prostatitis. We discussed pelvic floor therapy and pelvic floor exercises; information provided. We discussed bladder triggers/irritants. Discuss treatment options of prostatitis as well as risks and benefits of these treatment options. Follow-up in 3 months with [facility]; or sooner with any issues, concerns, and or questions. Orders: Orders AMB Urinalysis Automated Today Z13.9 - Encounter for screening, unspecified Patient Instructions: The patient had an opportunity to ask questions regarding the treatment plan. All questions were answered. Physical exam, labs, and imaging were discussed and reviewed in detail. As well as risks, benefits, and discussion of treatment choices. No major barriers to understanding were identified. The patient expressed understanding and agreement with the above treatment plan. The patient was made aware they should contact our office by phone for worsening of their current condition, the appearance of new symptoms, or with any questions or concerns. Compliance is encouraged with any medications and follow up testing that is ordered. It is a privilege to be allowed the opportunity to participate in? your urological care.? Again, if you have any questions or concerns If you have any questions or concerns please do not hesitate to contact me. The office is [phone]. This note is constructed using voice recognition software. While every effort has been made to ensure accuracy gi asst errors may have been included. Yours sincerely, SANTHOSH Blount Coding Level of Care Code New Pt Level 4 (83418) Diagnoses Prostatitis N41.9 Dysuria R30.0 Perineal pain R10.2 Hydrocele N43.3 Time Spent (min) 35
== END 2024-01-26 14:58 | disposition home or self-care (01) ==
PROVIDERS: PCP Internal Medicine; Visit Provider Nurse Practitioner Family
DX: N41.9 Inflammatory disease of prostate, unspecified (principal); R30.0 Dysuria; R10.2 Pelvic and perineal pain; N43.3 Hydrocele, unspecified
CPT/HCPCS: 99204

== ENCOUNTER → 2024-01-26 14:07 | Outpatient (BNVA) | payer MEDICARE, MEDICAID, SELFPAY | PROVIDERS: PCP Internal Medicine; Visit Provider Nurse Practitioner Family | DX: N41.9 Inflammatory disease of prostate, unspecified (principal); N43.3 Hydrocele, unspecified; R30.0 Dysuria; R10.2 Pelvic and perineal pain; G89.29 Other chronic pain | CPT/HCPCS: 81003; 99202 ==

== ENCOUNTER 2024-08-02 13:51 | Outpatient (AMB) | payer MEDICARE, MEDICAID, SELFPAY ==
--- NOTE | 2024-08-02 13:55 | MHC.PC.OV ---
Vital Signs 08/02/24 13:58 Height 5 ft 11 in Weight 187 lb 2 oz BMI 26.1 BP 96/64 Blood Pressure Location Lt brachial Position Sitting Respiration 16 Pulse 69 Pulse Source Pulse Oximeter Temp 97.7 F Temp Source Oral Pulse Oximetry (%) 97 Oxygen Delivery Method Room Air Intake Visit Reasons: follow up Intake Note: Follow up Home Care Administrator Required: No Allergies No Known Allergies Allergy (Verified 08/02/24 13:56) Tobacco use date assessed: 08/02/24 Dental Screening Dental Screen Date: 08/02/24 Did you have a dental visit in the last 12 months?: Yes Did you have a dental problem in the last 6 months where you did not have access to dental care?: No Was dental information given to patient?: Patient has dentist HPI HPI Comments History of Present Illness Details The patient is a 23 year old male with a past medical history of autism spectrum, hyperlipidemia, anxiety, ADD, hypothyroid presenting for follow up CV: Took a break from atorvastatin 10mg daily as he wasnted to see what his lipids were off the medication. LDL 189. Family history of heart disease. He restarted the medication. Lipids ordered Endocrine: Previously seeing pediatric endocrinology. Off levothyroxine-wanted to stop. He was on levothyroxine 125mcg daily. His last TSH off the meds for 8 weeks was in normal range Neuropsych: Previously on anxiety & ADHD medications. Previously seeing a therapist and medication provider. Born at 29 weeks. Has central processing disorder. Some learning delay, social communication disorders. MSK: Mountain biking. Working at [employer] heavy lifting. Seeing arthritis treatment center. Experiencing a lot of joint pain but biking 60 hours a week and doing cardio. Thigh and leg pain increasingly severe. Notes frequently injuring himself over the past year. Increased accidents mountain biking. Stubbing toe, walking into [place] at home. Endorses intermittent vertigo, tinnitus (b/l), 2 frontal b/l FERRARA days per week (increased over past years). MRI of the brain was reassuring. No sleep apnea on study. Frequent limb movements with poor sleep efficiency. Urology: Was experiencing groin pain. Had US. Saw urology. Thought secondary to prostatitis. Conservative measures to avoid Dentist UTD ROS see HPI PHYSICAL EXAM: GENERAL: Alert and oriented x 3. NAD EYES: EOMI. Anicteric. HENT: Moist mucous membranes. No scleral icterus. No cervical lymphadenopathy. LUNGS: Clear to auscultation bilaterally. CARDIOVASCULAR: Regular rate and rhythm. No murmur. No JVD. ABDOMEN: Soft, non-tender +bs EXTREMITIES: No edema. Non-tender. SKIN: No rashes or lesions. Warm. Toenail thickening and breakage NEUROLOGIC: No focal neurological deficits. CN II-XII grossly intact PSYCHIATRIC: Cooperative. 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 1. Little interest or pleasure in doing things: more than half the days 2. Feeling down, depressed, or hopeless: not at all 3. Trouble falling or staying asleep, or sleeping too much: nearly every day 4. Feeling tired or having little energy: more than half the days 5. Poor appetite or overeating: more than half the days 6. Feeling bad about yourself - or that you are a failure or have let yourself or your family down: not at all 7. Trouble concentrating on things, such as reading the newspaper or watching television: nearly every day 8. Moving or speaking so slowly that other people could have noticed. Or the opposite - being so fidgety or restless that you have been moving around a lot more than usual: not at all 9. Thoughts that you would be better off or of hurting yourself in some way: not at all Total score: 12 Depression Screening Interpretation: Positive Depression Screening Follow-up: Existing condition Depression Screening Done: Yes Source: Developed by Viri Merritt Kurt Kroenke and colleagues, with an educational jay from Dr. [employer]. Thrive Questionnaire Date Thrive assessed: 07/26/24 I am a: Patient What is your living situation today?: I have a steady place to live Within the past 12 months, did the food you bought not last and you didn't have the money to get more?: Sometimes True Within the past 12 months, did you worry whether your food would run out before you got money to buy more?: Sometimes True Do you have trouble paying for medicines?: No Do you have trouble getting transportation to medical appointments?: No Do you have trouble paying your heating and electricity bill?: No Do you have trouble taking care of your child, family member or friend?: No Do you have trouble with day-to-day activities such as bathing, preparing meals, shopping, managing finances, etc.?: No Are you currently unemployed and looking for a job?: No Are you interested in more education?: No Please select the resources that you would like help with: None Currently or been in a relationship where the following occur: No concerns reported THRIVE Score: 2 AUDIT C Alcohol Use Questionnaire (AUDIT-C) 1. How often do you have a drink containing alcohol?: Never 3. How often do you have six or more drinks on one occasion?: Never Total Score: 0 GENE-7 AMB Questionnaire GENE-7 Date GENE - 7 assessed: 11/11/23 Feeling nervous, anxious, or on edge: 0 = Not at all Not being able to stop or control worryin = Not at all Worrying too much about different things: 0 = Not at all Trouble relaxin = Not at all Being so restless that it is hard to sit still: 0 = Not at all Becoming easily annoyed or irritable: 0 = Not at all Feeling afraid as if something awful might happen: 0 = Not at all Total GENE-7 score (0-4 normal; 5-9 mild; 10-14 moderate; 15-21 severe): 0 Source: Developed by Viri Merritt Kurt Kroenke and colleagues, with an educational jay from Dr. Scribbles. Physical exam (Primary Care) Vital Signs: Last Vital Signs Temp 97.7 F 08/02/24 13:58 Pulse 69 08/02/24 13:58 Resp 16 08/02/24 13:58 BP 96/64 08/02/24 13:58 Pulse Ox 97 08/02/24 13:58 Oxygen Delivery Method Room Air 08/02/24 13:58 BMI result Body Mass Index 26.1 Tobacco/Smoking Status: Tobacco use Status Tobacco use date assessed 08/02/24 08/02/24 14:01 Patient Tobacco Use Status Never used Tobacco 08/02/24 14:01 e-Cigarette/Vaping Use Never Used 08/02/24 14:01 PHQ-9: PHQ-9 Score PHQ-9: Total score 12 08/04/24 16:07 Depression Screening Interpretation: Positive Depression Screening Follow-up: Existing condition Thrive Assessment: Date of Thrive Assessment Date Thrive assessed 07/26/24 08/02/24 14:01 Currently or been in a relationship where the following occur: No concerns reported Coding Level of Care Code Est Pt Level 4 (14132) Complex EM visit Add On G2211 Diagnoses Toe pain, right M79.674 Toe pain, left M79.675 Polymyalgia M35.3 Frequent falls R29.6 Assessment & Plan Assessment & Plan (1) Toe pain, right: Code(s): M79.674 - Pain in right toe(s) Category: Medical (2) Toe pain, left: Code(s): M79.675 - Pain in left toe(s) Category: Medical (3) Polymyalgia: Code(s): M35.3 - Polymyalgia rheumatica Category: Medical (4) Frequent falls: Comment: see above Code(s): R29.6 - Repeated falls Category: Medical Plan 23 year old for follow up Ortho referral for increase knee pain Toe pain, toenail changes-referral to podiatry Labs ordered neurology referral reordered for frequent falls Orders: Referrals Orthopedics Referral M25.561 - Pain in right knee, M25.562 - Pain in left knee, M79.674 - Pain in right toe(s), M79.675 - Pain in left toe(s) Podiatry Referral M79.674 - Pain in right toe(s), M79.675 - Pain in left toe(s) Medications: Refilled atorvastatin 10 mg PO DAILY 90 tabs 3RF 90 days
[2024-08-02 13:58] VITALS: BP 96/64; PULSE 69; RESP 16; TEMP 36.5; O2SAT 97; BMI 26.1
--- OUTSIDE RECORDS SUMMARY | 2024-08-02 15:44 | XMS_ITS ---
Author Name [facility] Organization Unknown History of Medication Use Medication Directions Dispensed Refills Start Date End Date Stat us None recorded. (No additional sig information) completed propranolol 20 mg tablet TAKE 1 TABLET BY MOUTH THREE TIMES DAILY TAKE 1 TABLET BY MOUTH THREE TIMES DAILY completed Problems Problem Status Onset Date Problem Type Date of Resoluti on Source Acquired hypothyroidism active 2019 ProblemAct [facility] Reflux active ProblemAct [facility]P Hypercholesterolemia active 2019 ProblemAct [facility]P Child attention deficit disorder active ProblemAct [facility] Depressive disorder active ProblemAct [facility]P Anxiety state active 2006-11-07 ProblemAct CTHL PVP Encounters Encounter Type Encounter Reason Primary Diagnosis Location Date Ambulatory Viral infection, unspecified [facility] 11/19/2022 Ambulatory [facility] 02/07/2022 Ambulatory [facility] 11/08/2021 Ambulatory [facility] 05/31/2021 Ambulatory [facility] 04/10/2021 Care Team Organization Name Specialty Phone Email Start Date End Da te [facility] 202105/12/2024 [facility] 202111/08/2021
== END 2024-08-02 14:32 | disposition home or self-care (01) ==
LOC: HO.HMCFM 13:52
PROVIDERS: PCP Internal Medicine; Visit Provider Internal Medicine
DX: M79.674 Pain in right toe(s) (principal); M79.675 Pain in left toe(s); M35.3 Polymyalgia rheumatica; R29.6 Repeated falls

== ENCOUNTER → 2024-08-02 13:51 | Outpatient (BNVA) | payer MEDICARE, MEDICAID, SELFPAY | PROVIDERS: PCP Internal Medicine; Visit Provider Internal Medicine | DX: Z13.89 Encounter for screening for other disorder (principal) | CPT/HCPCS: 99212 ==

== ENCOUNTER 2024-08-02 14:49 | Outpatient (REF) | payer MEDICARE, MEDICAID, SELFPAY ==
[2024-08-02 17:53] LABS: Appearance Urine Cloudy; Color Urine Yellow; Glucose Urine UA Negative (Negative); Leukocyte Esterase Urine Negative (Negative); Nitrite Urine Negative (Negative); Specific Gravity - Urine 1.025 (1.005-1.025); Urine Blood Negative (Negative); Urine Ketones Negative (Negative); Urine Protein Trace mg/dL (Neg-Trace)
[2024-08-02 18:10] LABS: Cholesterol 168 mg/dL (<200); HDL Cholesterol 45 mg/dL (>40); Iron 177 mcg/dL (45-160); LDL Cholesterol Calculated 109 mg/dL (<100); Percent Iron Saturation 59 % (15-50); Total Iron Binding Capacity 302 mcg/dL (228-428); Triglycerides 70 mg/dL (<150); Unsaturated Iron Binding 125 ug/dL
[2024-08-02 18:26] LABS: TSH reflex Free T4 3.39 uIU/mL (0.32-4.0)
[2024-08-02 18:33] LABS: Folate 9.6 ng/mL (> or = 4.0); Vitamin B12 698 pg/mL (200-900)
== END 2024-08-02 14:50 | disposition home or self-care (01) ==
LOC: HO.WFDLDS 14:49
PROVIDERS: Visit Provider Internal Medicine
DX: M79.674 Pain in right toe(s) (principal); M79.675 Pain in left toe(s); M53.3 Sacrococcygeal disorders, not elsewhere classified; R29.6 Repeated falls; F84.0 Autistic disorder; F41.9 Anxiety disorder, unspecified; F98.8 Other specified behavioral and emotional disorders with onset usually occurring in childhood and adolescence; E03.9 Hypothyroidism, unspecified; R53.83 Other fatigue; E78.2 Mixed hyperlipidemia; R10.2 Pelvic and perineal pain
CPT/HCPCS: 36415; 80061; 81003; 82607; 82746; 83540; 84443; 99212

== ENCOUNTER 2024-11-15 15:12 | Outpatient (AMB) | payer MEDICARE, MEDICAID, SELFPAY ==
--- NOTE | 2024-11-15 15:19 | MHC.PC.OV ---
Vital Signs 11/15/24 15:20 Height 5 ft 11 in Weight 199 lb 6 oz BMI 27.8 BP 114/72 Blood Pressure Location Lt brachial Position Sitting Respiration 14 Pulse 99 Pulse Source Pulse Oximeter Temp 98.3 F Temp Source Oral Pulse Oximetry (%) 98 Oxygen Delivery Method Room Air Intake Visit Reasons: PE Intake Note: Physical Ems Educator Required: No Accompanied by: Mother Allergies No Known Allergies Allergy (Verified 11/15/24 15:19) Tobacco use date assessed: 11/15/24 Dental Screening Dental Screen Date: 08/02/24 HPI HPI Comments History of Present Illness Details The patient is a 24 year old male with a past medical history of autism spectrum, hyperlipidemia, anxiety, ADD, hypothyroid presenting for CPE Elevated iron on last labs. Repeat ordered. Discussed iron excess CV: Took a break from atorvastatin 10mg daily as he wanted to see what his lipids were off the medication. LDL 189 then much improved after restarting the med. Family history of heart disease. Endocrine: Previously seeing pediatric endocrinology. Off levothyroxine-wanted to stop. He was on levothyroxine 125mcg daily. His last TSH wnl. TPO antibodies (+) will monitor Neuropsych: Previously on anxiety & ADHD medications. Previously seeing a therapist and medication provider. Born at 29 weeks. Has central processing disorder. Some learning delay, social communication disorders. MSK: Mountain biking. Working at [employer]. Seeing arthritis treatment center. Experiencing a lot of joint pain but biking 60 hours a week and doing cardio. Thigh and leg pain increasingly severe. Now doing PT after seeing orthopedics. Notes frequently injuring himself over the past year. Increased accidents mountain biking. Stubbing toe, walking into [place] at home. Endorses intermittent vertigo, tinnitus (b/l), 2 frontal b/l FERRARA days per week (increased over past years). MRI of the brain was reassuring. No sleep apnea on study. Frequent limb movements with poor sleep efficiency. Urology: Was experiencing groin pain. Had US. Saw urology. Thought secondary to prostatitis. Conservative measures to avoid. Dentist UTD ROS see HPI PHYSICAL EXAM: GENERAL: Alert and oriented x 3. NAD EYES: EOMI. Anicteric. HENT: Moist mucous membranes. No scleral icterus. No cervical lymphadenopathy. LUNGS: Clear to auscultation bilaterally. CARDIOVASCULAR: Regular rate and rhythm. No murmur. No JVD. ABDOMEN: Soft, non-tender +bs EXTREMITIES: No edema. Non-tender. SKIN: No rashes or lesions. Warm. Toenail thickening and breakage NEUROLOGIC: No focal neurological deficits. CN II-XII grossly intact PSYCHIATRIC: Cooperative. 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 Current occupational exposures/hazards: No Cognitive needs: Yes Hearing needs: No Vision needs: No Questionnaire Thrive Questionnaire Date Thrive assessed: 07/26/24 I am a: Patient What is your living situation today?: I have a steady place to live Within the past 12 months, did the food you bought not last and you didn't have the money to get more?: Sometimes True Within the past 12 months, did you worry whether your food would run out before you got money to buy more?: Sometimes True Do you have trouble paying for medicines?: No Do you have trouble getting transportation to medical appointments?: No Do you have trouble paying your heating and electricity bill?: No Do you have trouble taking care of your child, family member or friend?: No Do you have trouble with day-to-day activities such as bathing, preparing meals, shopping, managing finances, etc.?: No Are you currently unemployed and looking for a job?: No Are you interested in more education?: No Please select the resources that you would like help with: None Currently or been in a relationship where the following occur: No concerns reported THRIVE Score: 2 AUDIT C Alcohol Use Questionnaire (AUDIT-C) 1. How often do you have a drink containing alcohol?: Never 3. How often do you have six or more drinks on one occasion?: Never Total Score: 0 GENE-7 AMB Questionnaire GENE-7 Date GENE - 7 assessed: 11/11/23 Source: Developed by Drs. Kirk Love, Viri León, Cam Byrd and colleagues, with an educational jay from [employer]. Physical exam (Primary Care) Vital Signs: Last Vital Signs Temp 98.3 F 11/15/24 15:20 Pulse 99 11/15/24 15:20 Resp 14 11/15/24 15:20 BP 114/72 11/15/24 15:20 Pulse Ox 98 11/15/24 15:20 Oxygen Delivery Method Room Air 11/15/24 15:20 BMI result Body Mass Index 27.8 Tobacco/Smoking Status: Tobacco use Status Tobacco use date assessed 11/15/24 11/15/24 15:25 Patient Tobacco Use Status Never used Tobacco 11/15/24 15:25 e-Cigarette/Vaping Use Never Used 11/15/24 15:25 Thrive Assessment: Date of Thrive Assessment Date Thrive assessed 07/26/24 11/15/24 15:25 Currently or been in a relationship where the following occur: No concerns reported Office Procedures Flu Questionnaire Does the patient have a severe egg allergy?: No Does the patient have severe life threatening allergies?: No Does the patient have a fever or illness today?: No Has the patient ever had Guillain-Woodman Syndrome?: No Has the patient ever had any past reaction to a flu shot?: No Immunizations Fluarix [id number] (PF) 45 mcg (15 mcg x 3)/0.5 mL IM syringe Performing Provider: Cate Delgado MD Performing Location[place] [facility] [place] [facility] Administered by: Elayne Justin CMA on 11/15/24 16:08 Dose Route Admin Location Dispensed Lot Number Expiration Date NDC Film Waxer 0.5 mL IM Left Deltoid 0.5 mL [id number] 08/23/25 [id number] Omnistream VIS Given Date VIS Provided VIS Publication Date 11/15/24 Single Vaccine 24 Eligibility Eligibility Date Funding Source Not [facility] Eligible 11/15/24 Private Coding Level of Care Code Est Pt Prev Care [id number]) Diagnoses Physical exam Z00.00 Polyarthralgia M25.50 Iron excess E83.19 Assessment & Plan Assessment & Plan (1) Physical exam: Code(s): Z00.00 - Encounter for general adult medical examination without abnormal findings Category: Medical (2) Polyarthralgia: Comment: Labs ordered Code(s): M25.50 - Pain in unspecified joint Category: Medical (3) Iron excess: Code(s): E83.19 - Other disorders of iron metabolism Category: Medical Plan 24 year old for CPE Interval history reviewed Preventie measures for age discussed Polyarthralgia, continue ortho, rheum. trial meloxicam elevated iron-recheck. HH testing is still elevated HLD stable on statin therapy Orders: Orders IRON PROFILE Today E03.9 - Hypothyroidism, unspecified, E78.2 - Mixed hyperlipidemia, E83.19 - Other disorders of iron metabolism TSH reflex Free T4 Today E03.9 - Hypothyroidism, unspecified, E78.2 - Mixed hyperlipidemia, E83.19 - Other disorders of iron metabolism LDL Cholesterol Direct Today E03.9 - Hypothyroidism, unspecified, E78.2 - Mixed hyperlipidemia, E83.19 - Other disorders of iron metabolism Complete Blood Count Auto Diff Today E03.9 - Hypothyroidism, unspecified, E78.2 - Mixed hyperlipidemia, E83.19 - Other disorders of iron metabolism Comprehensive Met. Panel Today E03.9 - Hypothyroidism, unspecified, E78.2 - Mixed hyperlipidemia, E83.19 - Other disorders of iron metabolism Influenza [id number] Immunization Today Z23 - Encounter for immunization Medications: New meloxicam 15 mg PO DAILY 90 tabs 1RF
[2024-11-15 15:20] VITALS: BP 114/72; PULSE 99; RESP 14; TEMP 36.8; O2SAT 98; BMI 27.8
== END 2024-11-15 16:08 | disposition home or self-care (01) ==
LOC: HO.HMCFM 15:13
PROVIDERS: PCP Internal Medicine; Visit Provider Internal Medicine
DX: Z00.00 Encounter for general adult medical examination without abnormal findings (principal); M25.50 Pain in unspecified joint; E83.19 Other disorders of iron metabolism; Z23 Encounter for immunization

== ENCOUNTER → 2024-11-15 15:12 | Outpatient (BNVA) | payer MEDICARE, MEDICAID, SELFPAY | PROVIDERS: PCP Internal Medicine; Visit Provider Internal Medicine | DX: Z00.00 Encounter for general adult medical examination without abnormal findings (principal); Z23 Encounter for immunization; M25.50 Pain in unspecified joint; E83.19 Other disorders of iron metabolism; E78.5 Hyperlipidemia, unspecified; Z79.899 Other long term (current) drug therapy | CPT/HCPCS: 90471; 90656; 99395 ==

== ENCOUNTER 2025-01-31 12:07 | Outpatient (REF) | payer MEDICARE, MEDICAID, SELFPAY ==
[2025-01-31 14:56] LABS: MANUAL DIFF FLAG NO
[2025-01-31 15:07] LABS: Hematocrit 49.3 % (42.0-52.0); Hemoglobin 16.4 g/dl (14.0-18.0); Imm Gran Abs Auto 0.01 X10*3/uL (0.00-0.03); Imm Gran Pct Auto 0.2 % (0.0-0.4); Lymphocytes Absolute Auto 2.2 X10*3/uL (1.2-4.9); Mean Corpuscular HGB Conc 33.3 g/dl (31.0-36.0); Mean Corpuscular Hemoglobin 26.8 pg (27.0-33.0); Mean Corpuscular Volume 80.4 fL (80.0-98.0); NRBC Abs Auto 0.000 X10*3/uL (0.0-0.012); NRBC Pct Auto 0.0 /100WBC (0.0-0.2); Platelet Count 157 X10*3/uL (160-400); Red Blood Count 6.13 X10*6/uL (4.60-5.80); White Blood Count 5.4 X10*3/uL (4.8-10.8)
[2025-01-31 17:15] LABS: Alanine Aminotransferase 38 U/L (0-40); Albumin Level 4.7 g/dL (3.5-5.0); Alkaline Phosphatase 84 U/L (39-117); Anion Gap 9 (12-20); Aspartate Amino Transferase 33 U/L (5-37); Blood Urea Nitrogen 15 mg/dL (9-16); Calcium 9.1 mg/dL (8.4-10.2); Carbon Dioxide 30 mmol/L (22-29); Chloride 105 mmol/L (96-108); Estimated Glomerular Filt Rate > 60; Iron 142 mcg/dL (45-160); Percent Iron Saturation 44 % (15-50); Potassium 4.2 mmol/L (3.3-5.1); Sodium 140 mmol/L (135-145); Total Iron Binding Capacity 323 mcg/dL (228-428); Total Protein 6.9 g/dL (6.5-8.0); Unsaturated Iron Binding 181 ug/dL
== END 2025-01-31 12:08 | disposition home or self-care (01) ==
LOC: HO.WFDLDS 12:07
PROVIDERS: Visit Provider Internal Medicine
DX: E83.19 Other disorders of iron metabolism (principal); E78.2 Mixed hyperlipidemia; E03.9 Hypothyroidism, unspecified
CPT/HCPCS: 36415; 80053; 83540; 83721; 84443; 85025